=== PATIENT | male | born 1950 | race Caucasian/White ===

== ENCOUNTER 2022-05-27 10:35 | Emergency (ER) | payer MEDICARE, BC ==
[~2022-05-27] VITALS: Ht 185.4 cm; Wt 118.2 kg
[2022-05-27 10:45] VITALS: TEMP 97.7
[2022-05-27 12:14] LABS: ALANINE AMINOTRANSFERASE 45 U/L (0-55); ALBUMIN 3.6 gm/dL (3.4-4.8); ALKALINE PHOSPHATASE 58 U/L (40-150); ANION GAP 9 mmol/L (7-16); AST,SGOT 38 U/L (5-34); BILIRUBIN,TOTAL 0.5 mg/dL (0.2-1.2); BLOOD UREA NITROGEN 10 mg/dL (8-26); CARBON DIOXIDE 23 mmol/L (23-31); CHLORIDE 108 mmol/L (98-107); CREATININE, serum 0.82 mg/dL (0.72-1.25); GLUCOSE 157 mg/dL (70-99); POTASSIUM 4.4 mmol/L (3.5-4.5); SODIUM 140 mmol/L (136-145); TOTAL PROTEIN 6.8 gm/dL (6.2-8.1)
[2022-05-27 12:15] LABS: BASO % 0.6 % (0.0-2.0); EOS # 0.3 K/mm3 (0.0-0.7); EOS % 5.3 % (0.0-4.0); GRAN % 61.9 % (42.2-75.2); HEMOGLOBIN 13.3 g/dl (13.5-18.0); LYMPH # 1.5 K/mm3 (1.2-3.4); LYMPH % 23.8 % (20.0-51.0); MEAN CELL VOLUME 86 fl (80.0-100.0); MEAN CORPUSCULAR HEMOGLOBIN 29 pg (27-31); MEAN CORPUSCULAR HGB CONC 33 g/dl (33.0-37.0); MEAN PLATELET VOLUME 10.3 fl (7.4-10.4); MONO # 0.5 K/mm3 (0.1-0.6); MONO % 7.8 % (1.7-9.3); PLATELET COUNT 176 K/mm3 (130-400); RED BLOOD COUNT 4.66 M/mm3 (4.20-5.60); REDCELL DISTRIBUTION WIDTH-CV 14.6 % (11.5-14.5)
[2022-05-27 12:31] LABS: TROPONIN-I < 0.010 ng/mL (0.00-0.033)
[2022-05-27 13:28] LABS: MUCOUS Present (NOT PRESENT); SQUAMOUS EPITHELIAL 0-2 /hpf (0-10); URINE BACTERIA None Seen /hpf (NONE SEEN); URINE RBC 0-2 /hpf (0-2); URINE WBC 0-2 /hpf (0-2)
[2022-05-27 13:32] LABS: URINE APPEARANCE Clear (CLEAR/HAZY); URINE BLOOD Negative (NEGATIVE); URINE COLOR Yellow (YELLOW); URINE GLUCOSE Negative (NEGATIVE); URINE KETONE Negative (NEGATIVE); URINE NITRATE Negative (NEGATIVE); URINE PROTEIN(semi-quant) Negative (NEGATIVE); URINE UROBILINOGEN 0.2 E.U/dL (0.2-1.0)
[2022-05-27 13:58] LABS: COLLECTION METHOD CLEAN CATCH
[2022-05-27] MEDS ORDERED: GLUCOPHAGE1000 MG PO ×2 (15:42→15:48)
[2022-05-27] MEDS ORDERED: VICODIN 5/300 PO ×2 (15:42→15:48)
[2022-05-27] MEDS ORDERED: FLEXERIL 1010 MG/TAB PO ×2 (15:42→15:48)
[2022-05-27 16:03] VITALS: BP 157/86; PULSE 62
== END 2022-05-27 16:30 | disposition home or self-care (01) ==
LOC: COL.ER 10:35
PROVIDERS: Personal Emergency Response Attendant
DX: R07.2 Precordial pain (principal); M54.9 Dorsalgia, unspecified; Z98.61 Coronary angioplasty status; Z98.1 Arthrodesis status; Z79.891 Long term (current) use of opiate analgesic
CPT/HCPCS: J2405; J3010; J7030; Q9967